=== PATIENT | male | born 1985 | race African-American/Black ===

== ENCOUNTER → 2024-03-03 | Outpatient (CLI) | payer OTHER | LOC: M RAD 08:09 | PROVIDERS: ATTEND Physician Assistant | DX: R06.00 Dyspnea, unspecified (principal); R05.9 Cough, unspecified; R04.2 Hemoptysis ==

== ENCOUNTER → 2024-04-03 | Outpatient (CLI) | payer OTHER ==
[~2024-04-03] MED LIST: METHACHOLINE KIT (6 VIAL.NEB PREMIX) INH ONE
== END ==
LOC: M CARPUL 07:29
PROVIDERS: ATTEND Physician Assistant
DX: R06.00 Dyspnea, unspecified (principal)
CPT/HCPCS: 94070; J7674

== ENCOUNTER 2024-12-25 23:18 | Emergency (ER) | payer OTHER ==
[~2024-12-25] VITALS: Ht 188 cm; Wt 78.4 kg
[2024-12-26 03:42] LABS: KETONE, URINE AUTO RFX NEGATIVE (NEGATIVE); LEUKOCYTE ESTERASE UR AUTO RFX NEGATIVE (NEGATIVE); MUCUS, URINE RFX SMALL (NEGATIVE); NITRITE, URINE AUTO RFX NEGATIVE (NEGATIVE); RBC, URINE AUTO RFX 1 /HPF (0-3); SQUAM EPITHELIAL CELL UR AURFX 0 /HPF (0-6); WBC, URINE AUTO RFX 3 /HPF (0-3)
[2024-12-26] MEDS ORDERED: NAPR-837 PO (04:10)
[2024-12-26 04:29] LABS: Trichomonas vaginalis (AMP) NOT DETECTED (NEGATIVE)
[2024-12-26 04:39] VITALS: BP 114/73; TEMP 98; O2SAT 99
[2024-12-26] MEDS: NAPROXEN 250 MG TAB PO ONE (04:39)
[2024-12-26 04:53] LABS: GC DNA AMPLIFICATION NEGATIVE (NEGATIVE)
== END 2024-12-26 04:59 | disposition home or self-care (01) ==
LOC: M ED 23:18
DX: K40.30 Unilateral inguinal hernia, with obstruction, without gangrene, not specified as recurrent (principal); Z79.899 Other long term (current) drug therapy

== ENCOUNTER 2025-01-10 10:18 | Emergency (ER) | payer OTHER, SELFPAY ==
[~2025-01-10] VITALS: Ht 188 cm; Wt 80.2 kg
[~2025-01-10 10:18] MED LIST changes: -METHACHOLINE KIT (6 VIAL.NEB PREMIX) INH ONE; +NAPR-837 PO
[2025-01-10 10:20] VITALS: BP 145/92; TEMP 99.1; O2SAT 99
[2025-01-10] MEDS ORDERED: FLUTISP (10:27)
[2025-01-10] MEDS ORDERED: DULO1CAP5 (10:27)
[2025-01-10] MEDS ORDERED: TIZA10TA (10:27)
[2025-01-10] MEDS ORDERED: KETO-204 PO (11:29)
[2025-01-10] MEDS ORDERED: MEDR4PAK PO (11:29)
== END 2025-01-10 11:50 | disposition home or self-care (01) ==
LOC: M ED 10:18
DX: M51.362 Other intervertebral disc degeneration, lumbar region with discogenic back pain and lower extremity pain (principal); Z79.2 Long term (current) use of antibiotics; Z79.899 Other long term (current) drug therapy